=== PATIENT | male | born 1995 | race Caucasian/White ===

== ENCOUNTER 2016-11-26 20:39 | Emergency (ER) | payer OTHER ==
[2016-11-26 21:09] VITALS: TEMP 97.8
[2016-11-26 21:13] VITALS: BMI 28.0
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
[2016-11-26 23:46] VITALS: BP 146/71; PULSE 67
== END 2016-11-26 23:45 | disposition home or self-care (01) ==
LOC: ED 20:39
DX: S06.0X0A Concussion without loss of consciousness, initial encounter (principal); V89.9XXA Person injured in unspecified vehicle accident, initial encounter; Y93.9 Activity, unspecified; S16.1XXA Strain of muscle, fascia and tendon at neck level, initial encounter; S00.01XA Abrasion of scalp, initial encounter
CPT/HCPCS: 70450; 70486; 72125; 99283